=== PATIENT | male | born 1960 | race African-American/Black ===

== ENCOUNTER 2018-12-13 21:38 | Inpatient (IN) | payer MEDICAID, MEDICARE ==
[2018-12-13 22:06] LABS: URINE SOURCE MIDSTREAM
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
[2018-12-13 22:09] LABS: URINE BILIRUBIN NEGATIVE (NEGATIVE); URINE BLOOD NEGATIVE (NEGATIVE); URINE GLUCOSE (UA) NEGATIVE (NEGATIVE); URINE KETONE NEGATIVE (NEGATIVE); URINE LEUKOCYTE ESTERASE NEGATIVE (NEGATIVE); URINE NITRATE NEGATIVE (NEGATIVE); URINE PH 7.5 (4.6 - 8.0); URINE PROTEIN NEGATIVE (NEGATIVE)
[2018-12-13 22:17] LABS: % BASOPHILS 0.3 % (0.0-2.0); % EOSINOPHILS 2.8 % (0.0-5.0); % LYMPHOCYTES 46.9 % (20.0-50.0); % MONOCYTES 12.6 % (2.0-10.0); % NEUTROPHILS 37.4 % (40.0-80.0); EOSINOPHILE ABSOLUTE 0.2 Th/cmm (0.1-0.4); HEMATOCRIT 39.6 % (41.0-60); HEMOGLOBIN 13.2 gm/dL (12-16); LYMPHOCYTE ABSOLUTE 2.9 Th/cmm (1.5-3.0); MEAN CELL VOLUME 93.6 fl (80-99); MEAN CORPUSCULAR HEMOGLOBIN 31.1 pg (26.0-30.0); MEAN CORPUSCULAR HGB CONC 33.2 pg (28.0-36.0); MEAN PLATELET VOLUME 8.4 fl; MONOCYTE ABSOLUTE 0.8 Th/cmm (0.3-1.0); NEUTROPHILE ABSOLUTE 2.3 Th/cmm (1.8-8.0); PLATELET COUNT 192 Th/cmm (150-400); RED BLOOD COUNT 4.23 Mil/cmm (4.30-5.70); RED CELL DISTRIBUTION WIDTH 12.9 % (11.5-20.0); WHITE BLOOD COUNT 6.2 Th/cmm (4.8-10.8)
[2018-12-13 22:21] LABS: URINE CLARITY CLEAR (CLEAR); URINE COLOR YELLOW; URINE MICROSCOPIC INDICATED? NO
[2018-12-13 22:29] LABS: INR 0.95 (0.5-1.4); PROTHROMBIN TIME (TEST) 9.9 SECONDS (9.5-11.5)
[2018-12-13 22:32] LABS: ALB/GLOB RATIO 2.2 (1.0-1.8); ALBUMIN 4.3 gm/dL (4.2-5.5); ALKALINE PHOSPHATASE 81 U/L (34-104); ANION GAP 9.5 (7.0-16.0); BILIRUBIN,TOTAL 0.3 mg/dL (0.3-1.0); BUN - UREA NITROGEN 7 mg/dL (7-25); CALCIUM SERUM 9.3 mg/dL (8.6-10.3); CARBON DIOXIDE 34.2 mEq/L (21.0-31.0); CHLORIDE 102 mEq/L (98-107); CREATININE - SERUM 0.9 mg/dL (0.7-1.3); GFR AFRICAN-AMERICAN > 60.0 ml/min (>90); GFR NON AFRICAN-AMERICAN > 60.0 ml/min; GLUCOSE 106 mg/dL (70-105); POTASSIUM SERUM 3.7 mEq/L (3.5-5.1); SGOT 11 U/L (13-39); SGPT/ALT 8 U/L (7-52); SODIUM SERUM 142 mEq/L (136-145); TOTAL PROTEIN,SERUM 6.3 gm/dL (6.0-8.3)
[2018-12-14 00:28] VITALS: BP 150/87
[2018-12-14] MEDS ORDERED: Magnesium Hydroxide (MOM) 30 mL UDC PO PRN (00:32)
[2018-12-14] MEDS ORDERED: Polyvinyl Alcohol Ophth Soln 15 mL Bottle EACH EYE PRN (00:32)
[2018-12-14] MEDS ORDERED: Maalox 30 mL Cup PO PRN (00:35)
[2018-12-14 01:01] LABS: CHOLESTEROL 124 mg/dL (<200); HDL -HIGH DENSITY LIPOPROTEIN 53 mg/dL (23-92); TRIGLYCERIDES 128 mg/dL (<150)
[2018-12-14] MEDS: Multivitamin Tab PO SCH (08:38)
--- NOTE | 2018-12-14 09:46 | Diagnostic Imaging Report ---
Portable chest x-ray History: Shortness of breath Allowing for portable technique the heart size is normal. No focal pulmonary parenchymal processes. No hilar or mediastinal abnormalities. Impression: No acute abnormalities.
--- NOTE | 2018-12-14 20:06 | History & Physical ---
ADMIT DATE: 12/13/2018 HISTORY OF PRESENT ILLNESS: The patient is a 58-year-old male with long history of diabetes mellitus and hypertension, admitted to [facility] under Dr. Brice's service for evaluation and treatment. The patient denies any chest pain, shortness of breath, nausea, vomiting, fever, chills.p PAST MEDICAL HISTORY: Hypertension, diabetes mellitus, and psychosis. PAST SURGICAL HISTORY: No recent surgery. ALLERGIES: HALOPERIDOL AND CHLORPROMAZINE. SOCIAL HISTORY: No smoking, no alcohol, no drug. FAMILY HISTORY: Noncontributory. MEDICATIONS: Follow admission reconciliation. REVIEW OF SYSTEMS: RENAL SYSTEM: No history of chronic renal disorder. CARDIOVASCULAR SYSTEM: Coronary artery disease. He has history of hypertension. ENDOCRINE SYSTEM: Has diabetes mellitus. GASTROINTESTINAL SYSTEM: No upper or lower gastrointestinal bleed. NEUROLOGICAL SYSTEM: Seizure disorder. MUSCULOSKELETAL SYSTEM: No muscular dystrophy. HEMATOLOGICAL SYSTEM: No bleeding 10 first nausea. GENITOURINARY: No dysuria or hematuria. PHYSICAL EXAMINATION: GENERAL: He is awake, alert, not confused. NEUROLOGIC: Cranial nerve is within normal limit. He is awake, alert, mildly confused. No focal motor deficits. ASSESSMENT: 1. Hypertension. 2. Diabetes mellitus. 3. Psychosis. PLAN: The patient admitted to the hospital under Dr. Brice's service. Medical problem to the urgent hospitalization is psychosis. Medical problems addressed at discharge, diabetes mellitus, and hypertension. The patient is medically stable for activity. Thank you Dr. Brice for asking me to see your patient. The patient is full code. JOB# [id number]
[2018-12-14] MEDS: risperiDONE 4 mg Tab PO SCH (20:21)
--- NOTE | 2018-12-15 01:58 | Psychiatric Evaluation ---
DATE OF SERVICE: INITIAL EVALUATION AND MENTAL STATUS EXAM PATIENT'S AGE: 58. SEX: Male. PHYSICIAN: Dr. Brice. CHIEF COMPLAINT: Agitation and irritability. HISTORY OF PRESENT ILLNESS: The patient is a 58-year-old male, who was transferred from [facility] because of out of control behavior, agitation, and irritability. The patient also has not been able to follow any of staff directions. Also has been verbally aggressive. The patient has history of schizophrenia and has been taking Zyprexa. The patient also has been having disorganized thoughts and seems to be paranoid. PAST PSYCHIATRIC HISTORY: The patient has history of schizophrenia versus schizoaffective disorder. PAST MEDICAL HISTORY: The patient has hypertension, hyperlipidemia, and gastroesophageal reflux disease. SOCIAL HISTORY: The patient lives in [facility]. No known alcohol or street drug use. No legal issues. ALLERGIES: No known allergies. MENTAL STATUS EXAMINATION: The patient appears his stated age. Anxious. Irritable mood. Disorganized thoughts. Seems to be preoccupied and responding. The patient is alert and oriented to time, place, person, and situation. Intact immediate, recent and remote memories. Poor insight and poor judgment. Seems to be of low average intelligence based on his verbal ability. ASSESSMENT: PRIMARY DIAGNOSIS: Schizoaffective disorder, bipolar type, severe, with psychotic features. MEDICAL DIAGNOSES: Hypertension, hyperlipidemia, chronic obstructive pulmonary disease. TREATMENT PLAN: We will continue to monitor his behavior and his condition closely. Also, we will work on his aggressive behavior and agitation. Also, we will adjust psychotropic medications. ESTIMATED LENGTH OF STAY: 5-7 days. THE PATIENT'S STRENGTHS AND WEAKNESSES: The patient's strength is not clear at this time except relatively fair health. Weakness is poor impulse control and ineffective coping. AFTER DISCHARGE PLAN: Outpatient treatment and followup will continue as an outpatient and the patient will return to [place]. JOB# [id number]
[2018-12-15] MEDS: Multivitamin Tab PO SCH (10:17)
--- NOTE | 2018-12-15 17:42 | Internal Medicine Prog Note ---
Internal Medicine Subjective - Subjective Service Date: 12/15/18 Patient is:: awake, verbal, ambulating, talking, confused Per staff patient has:: no adverse event Internal Medicine Objective - Results Result Diagrams: 12/13/18 22:09 12/13/18 22:09 Recent Labs: Laboratory Last Values WBC 6.2 Th/cmm (4.8-10.8) 12/13/18 22:09 RBC 4.23 Mil/cmm (4.30-5.70) L 12/13/18 22:09 Hgb 13.2 gm/dL (12-16) 12/13/18 22:09 Hct 39.6 % (41.0-60) L 12/13/18 22:09 MCV 93.6 fl (80-99) 12/13/18 22:09 MCH 31.1 pg (26.0-30.0) H 12/13/18 22:09 MCHC Differential 33.2 pg (28.0-36.0) 12/13/18 22:09 RDW 12.9 % (11.5-20.0) 12/13/18 22:09 Plt Count 192 Th/cmm (150-400) 12/13/18 22:09 MPV 8.4 fl 12/13/18 22:09 Neutrophils % 37.4 % (40.0-80.0) L 12/13/18 22:09 Lymphocytes % 46.9 % (20.0-50.0) 12/13/18 22:09 Monocytes % 12.6 % (2.0-10.0) H 12/13/18 22:09 Eosinophils % 2.8 % (0.0-5.0) 12/13/18 22:09 Basophils % 0.3 % (0.0-2.0) 12/13/18 22:09 PT 9.9 SECONDS (9.5-11.5) 12/13/18 22:09 INR 0.95 (0.5-1.4) 12/13/18 22:09 PTT (Actin FS) 22.6 SECONDS (26.0-38.0) L 12/13/18 22:09 Sodium 142 mEq/L (136-145) 12/13/18 22:09 Potassium 3.7 mEq/L (3.5-5.1) 12/13/18 22:09 Chloride 102 mEq/L (98-107) 12/13/18 22:09 Carbon Dioxide 34.2 mEq/L (21.0-31.0) H 12/13/18 22:09 Anion Gap 9.5 (7.0-16.0) 12/13/18 22:09 BUN 7 mg/dL (7-25) 12/13/18 22:09 Creatinine 0.9 mg/dL (0.7-1.3) 12/13/18 22:09 Est GFR ( Amer) > 60.0 ml/min (>90) 12/13/18 22:09 Est GFR (Non-Af Amer) > 60.0 ml/min 12/13/18 22:09 BUN/Creatinine Ratio 7.8 12/13/18 22:09 Glucose 106 mg/dL (70-105) H 12/13/18 22:09 Calcium 9.3 mg/dL (8.6-10.3) 12/13/18 22:09 Total Bilirubin 0.3 mg/dL (0.3-1.0) 12/13/18 22:09 AST 11 U/L (13-39) L 12/13/18 22:09 ALT 8 U/L (7-52) 12/13/18 22:09 Alkaline Phosphatase 81 U/L (34-104) 12/13/18 22:09 Troponin I < 0.01 ng/mL (0.01-0.05) L 12/13/18 22:09 B-Natriuretic Peptide 33.8 pg/mL (5.0-100.0) 12/13/18 22:09 Total Protein 6.3 gm/dL (6.0-8.3) 12/13/18 22:09 Albumin 4.3 gm/dL (4.2-5.5) 12/13/18 22:09 Globulin 2.0 gm/dL 12/13/18 22:09 Albumin/Globulin Ratio 2.2 (1.0-1.8) H 12/13/18 22:09 Triglycerides 128 mg/dL (<150) 12/13/18 22:09 Cholesterol 124 mg/dL (<200) 12/13/18 22:09 LDL Cholesterol Direct 60 mg/dL (75-193) L 12/13/18 22:09 HDL Cholesterol 53 mg/dL (23-92) 12/13/18 22:09 TSH 2.48 uIU/ml (0.34-5.60) 12/13/18 22:09 Urine Source MIDSTREAM 12/13/18 21:50 Urine Color YELLOW 12/13/18 21:50 Urine Clarity CLEAR (CLEAR) 12/13/18 21:50 Urine pH 7.5 (4.6 - 8.0) 12/13/18 21:50 Ur Specific [place] 1.010 (1.005-1.030) 12/13/18 21:50 Urine Protein NEGATIVE mg/dL (NEGATIVE) 12/13/18 21:50 Urine Glucose (UA) NEGATIVE mg/dL (NEGATIVE) 12/13/18 21:50 Urine Ketones NEGATIVE mg/dL (NEGATIVE) 12/13/18 21:50 Urine Blood NEGATIVE (NEGATIVE) 12/13/18 21:50 Urine Nitrate NEGATIVE (NEGATIVE) 12/13/18 21:50 Urine Bilirubin NEGATIVE (NEGATIVE) 12/13/18 21:50 Urine Urobilinogen 1.0 E.U./dL (0.2 - 1.0) 12/13/18 21:50 Ur Leukocyte Esterase NEGATIVE (NEGATIVE) 12/13/18 21:50 - Physical Exam Vitals and I&O: Vital Signs Temp 97.8 F 12/15/18 16:19 Pulse 78 12/15/18 16:19 Resp 20 12/15/18 16:19 BP 122/98 12/15/18 16:19 Pulse Ox 99 12/15/18 16:19 Intake & Output 12/14/18 12/15/18 12/15/18 18:59 06:59 18:59 Intake Total 1600 120 Balance 1600 120 Intake: Oral 1600 120 Other: # Voids 3 3 # Bowel Movements 0 0 Active Medications: Current Medications Acetaminophen (Tylenol) 650 mg PO Q4HR PRN PRN Reason: Mild Pain / Temp above 100 Stop: 02/12/19 00:16 Al Hydrox/Mg Hydrox/Simethicone (Maalox) 30 ml PO Q6H PRN PRN Reason: GERD Stop: 02/12/19 00:34 Artificial Tears (Artificial Tears Ophth Soln) 1 drop EACH EYE TID PRN PRN Reason: Dry Eye Stop: 02/12/19 00:31 Aspirin (Ecotrin) 81 mg PO DAILY [facility] Stop: 02/12/19 08:59 Last Admin: 12/15/18 10:17 Dose: 81 mg Atenolol (Tenormin) 25 mg PO DAILY [facility] Stop: 02/12/19 08:59 Last Admin: 12/15/18 10:19 Dose: 25 mg Atorvastatin Calcium (Lipitor) 40 mg PO HS [facility]; Protocol Stop: 02/12/19 20:59 Last Admin: 12/14/18 20:21 Dose: 40 mg Divalproex Sodium (Depakote Dr) 500 mg PO 1700 [facility]; Protocol Stop: 02/12/19 16:59 Last Admin: 12/14/18 17:17 Dose: 500 mg Divalproex Sodium (Depakote Dr) 250 mg PO DAILY [facility]; Protocol Stop: 02/12/19 08:59 Last Admin: 12/15/18 10:17 Dose: 250 mg Docusate Sodium (Colace) 250 mg PO DAILY [facility] Stop: 02/12/19 08:59 Last Admin: 12/15/18 10:17 Dose: 250 mg Famotidine (Pepcid) 40 mg PO DAILY [facility] Stop: 02/12/19 08:59 Last Admin: 12/15/18 10:16 Dose: 40 mg Glipizide (Glucotrol) 10 mg PO BIDAC [facility] Stop: 02/12/19 07:29 Last Admin: 12/15/18 06:46 Dose: 10 mg Lisinopril (Zestril) 5 mg PO DAILY [facility] Stop: 02/12/19 08:59 Last Admin: 12/15/18 10:18 Dose: 5 mg Lorazepam (Ativan) 0.5 mg PO Q4H PRN; Protocol PRN Reason: Anxiety Stop: 02/12/19 00:16 Magnesium Hydroxide (Milk Of Magnesia) 30 ml PO DAILY PRN PRN Reason: Constipation Stop: 02/12/19 00:31 Metformin HCl (Glucophage) 850 mg PO BIDWM [facility] Stop: 02/12/19 07:59 Last Admin: 12/15/18 10:18 Dose: Not Given Multivitamins/Vitamin C (Theragran) 1 tab PO DAILY [facility] Stop: 02/12/19 08:59 Last Admin: 12/15/18 10:17 Dose: 1 tab Olanzapine (Zyprexa) 10 mg PO DAILY [facility]; Protocol Stop: 02/12/19 08:59 Last Admin: 12/15/18 10:17 Dose: 10 mg Risperidone (Risperdal) 4 mg PO HS [facility]; Protocol Stop: 02/12/19 20:59 Last Admin: 12/14/18 20:21 Dose: 4 mg Zolpidem Tartrate (Ambien) 5 mg PO HS PRN PRN Reason: Insomnia Stop: 02/12/19 00:16 Last Admin: 12/14/18 20:23 Dose: 5 mg General: alert, demented HEENT: NC/AT, PERRLA, EOMI, anicteric sclerae, throat clear Neck: Supple, No JVD, No thyromegaly, +2 carotid pulse wo bruit, No LAD Lungs: CTAB Cardiovascular: RRR, Normal S1, Normal S2, without murmur Abdomen: soft, non-tender, non-distended Extremities: clear Neurological: no change Internal Medicine Assmt/Plan - Assessment Assessment: 1.DM. 2.HTN. 3.DJD. 4.PSYCHOSIS. - Plan Plan: CONTINUE ON CURRENT MEDICATION AND DIET.
[2018-12-15] MEDS: risperiDONE 4 mg Tab PO SCH (20:23)
--- NOTE | 2018-12-15 21:08 | Progress Notes ---
DATE: 12/15/2018 SUBJECTIVE: Chart reviewed and the patient interviewed. Also discussed the patient's condition with the staff and reviewed records and labs. The patient is still paranoid and he is still suspicious. The patient also is still guarded, still needs directions and he is only able to follow simple commands. Also, have mood swings. Otherwise, the patient continued to comply with medications with no side effects of Depakote, Zyprexa, or Risperdal. ASSESSMENT: The patient is still agitated and needs redirections. TREATMENT PLAN: Continue to monitor her behavior and condition closely. Also, continue to work on his agitation and irritability and continue to follow up. JOB# [id number]
[2018-12-16] MEDS: Multivitamin Tab PO SCH (08:34)
--- NOTE | 2018-12-19 15:20 | Discharge Summary ---
DATE OF DISCHARGE: FINAL DIAGNOSIS AND PRIMARY DIAGNOSIS: Bipolar disorder, mixed episode, severe, with psychotic features. REASON FOR HOSPITALIZATION: The patient was admitted to the hospital from [facility] because of increased paranoia and agitation and severe mood swings. HOSPITAL COURSE: The patient continued to be agitated and continued to be suspicious and paranoid. The patient also was restless and he needed close monitoring because of his agitation. He was started on Depakote, Zyprexa and Risperdal. Gradually, the patient's affect was brighter and the patient was less agitated and less paranoid and was easier to redirect him and the patient discharged back to [facility]. Physical exam of the patient showed that the patient is diabetic as well as hypertension and gastroesophageal reflux disease, hyperlipidemia, and cataract. The patient had no major medical problems while in the hospital. AFTER DISCHARGE PLANS: The patient is discharged from the hospital back to [facility] with plan to follow him there. EXPECTED OUTCOME AFTER DISCHARGE: Fair if the patient continues to take his psychotropic medications and follow up with discharge plans. [facility]# [id number]
== END 2018-12-16 19:28 | DRG 885 ==
LOC: ER 21:38 → GERO2 23:04
PROVIDERS: ADMIT Psychiatry & Neurology Psychiatry; ATTEND Psychiatry & Neurology Psychiatry
DX: F25.0 Schizoaffective disorder, bipolar type (principal); N18.9 Chronic kidney disease, unspecified; E78.5 Hyperlipidemia, unspecified; I12.9 Hypertensive chronic kidney disease with stage 1 through stage 4 chronic kidney disease, or unspecified chronic kidney disease; E11.22 Type 2 diabetes mellitus with diabetic chronic kidney disease; F17.210 Nicotine dependence, cigarettes, uncomplicated; J43.9 Emphysema, unspecified; F29 Unspecified psychosis not due to a substance or known physiological condition; Z88.8 Allergy status to other drugs, medicaments and biological substances
CPT/HCPCS: 36415-UA; 71045-TC; 80053-TC; 80061-TC; 81003-TC; 83036-90; 83880-TC; 84443-TC; 84484-TC; 85025-TC; 85610-TC; 93005; Z7610